=== PATIENT | female | born 1985 | race Caucasian/White ===

== ENCOUNTER 2017-09-26 08:20 | Day surgery (SDC) | payer BC ==
[~2017-09-26 08:20] MED LIST: Lactated Ringers 1,000 ML IV SCH; Lidocaine 2% 5 ML SDV ONE; Midazolam 1 MG/ML 2 ML SDV ONE; Ondansetron 4 MG/2 ML SDV ONE; Propofol 200 MG/20 ML SDV ONE; fentaNYL 250 MCG/5 ML SDV ONE
--- NOTE | 2017-09-26 08:49 | PCM.PREANE ---
Preanesthetic Assessment - Anesthesia/Transfusion/Family Hx Anesthesia History: Prior Anesthesia Without Reaction Family History of Anesthesia Reaction: No Transfusion History: No Prior Transfusion(s) Intubation History: Unknown - Review of Systems General: No Symptoms Pulmonary: No Symptoms Cardiovascular: No Symptoms Gastrointestinal: No Symptoms Neurological: No Symptoms Other: Reports: None - Physical Assessment Height: 1.65 m Weight: 67.132 kg ASA Class: 2 Mental Status: Alert & Oriented x3 Airway Class: Mallampati = 2 Dentition: Reports: Normal Dentition Thyro-Mental Finger Breadths: 3 Mouth Opening Finger Breadths: 3 ROM/Head Extension: Full Lungs: Clear to Auscultation, Normal Respiratory Effort Cardiovascular: Regular Rate, Regular Rhythm - Allergies Allergies/Adverse Reactions: Allergies Allergy/AdvReac Type Severity Reaction Status Date / Time No Known Allergies Allergy Verified 09/21/17 11:59 - Blood Blood Available: No - Anesthesia Plan Pre-Op Medication Ordered: None - Acknowledgements Anesthesia Type Planned: General Anesthesia Pt an Appropriate Candidate for the Planned Anesthesia: Yes Alternatives and Risks of Anesthesia Discussed w Pt/Guardian: Yes Pt/Guardian Understands and Agrees with Anesthesia Plan: Yes PreAnesthesia Questionnaire HEENT History: Reports: Other (See Below) Other HEENT History: wears glasses Respiratory History: Reports: Other (See Below) Other Respiratory History: asthma as a child Genitourinary History: Reports: None COW RIDER History: Reports: , Spontaneous , Other (See Below) ( retained POC post spontaneous ) Musculoskeletal History: Reports: Fracture Other Musculoskeletal History: hx fx left wrist and arm Psychiatric History: Reports: Anxiety, Depression Endocrine/Metabolic History: Reports: Diabetes, Gestational - Past Surgical History Head Surgeries/Procedures: Reports: None HEENT Surgical History: Reports: Oral Surgery Other HEENT Surgeries/Procedures: wisdom teeth extraction - SUBSTANCE USE Smoking Status *Q: Current Every Day Smoker (< 1/2 ppd) Tobacco Use Within Last Twelve Months: Cigarettes Recreational Drug Use History: No - HOME MEDS Home Medications: Home Meds Acetaminophen [Tylenol] 1 - 2 tab PO ASDIRECTED PRN 09/21/17 [History] Ibuprofen 1 - 2 tab PO ASDIRECTED PRN 09/21/17 [History] PARoxetine [Paxil] 20 mg PO DAILY 09/21/17 [History] - CURRENT (IN HOUSE) MEDS Current Meds: Current Medications Lactated Ringer's (Ringers, Lactated) 1,000 mls @ 100 mls/hr IV ASDIRECTED MARIEL Discontinued Medications Fentanyl (Sublimaze) Confirm Administered Dose 250 mcg .ROUTE .STK-MED ONE Stop: 09/26/17 07:04 Lidocaine (Xylocaine-Mpf 2%) Confirm Administered Dose 5 ml .ROUTE .STK-MED ONE Stop: 09/26/17 07:04 Midazolam HCl (Versed 1 Mg/Ml) Confirm Administered Dose 2 mg .ROUTE .STK-MED ONE Stop: 09/26/17 07:04 Ondansetron HCl (Zofran) Confirm Administered Dose 4 mg .ROUTE .STK-MED ONE Stop: 09/26/17 07:04 Propofol (Diprivan 20 Ml) Confirm Administered Dose 200 mg .ROUTE .STK-MED ONE Stop: 09/26/17 07:04
[2017-09-26] MEDS ORDERED: Azithromycin 1,000 MG in Sodium Chloride 0.9% 500 ML IV ONE (08:56)
[2017-09-26] MEDS ORDERED: Dexamethasone 4 MG/ML 5 ML MDV ONE (09:49)
[2017-09-26] MEDS ORDERED: fentaNYL 100 MCG/2 ML SDV IVPUSH PRN (09:56)
[2017-09-26] MEDS ORDERED: Ketorolac 30 MG/ML SDV ONE (09:58)
--- NOTE | 2017-09-26 10:31 | PCM.OPNOTE ---
- General Post-Op/Procedure Note Date of Surgery/Procedure: 09/26/17 Operative Procedure(s): Suction currettage Findings: 7 weeks anteverted uterus , cervix accomodated 7mm curved currette. Minimal necrotic POC evacuated . Uterine cavity with gritty sensation noted in all quadrants after sharp currettage with size 3 curette Pre Op Diagnosis: Retained product of conception secondary to Medical TOP Post-Op Diagnosis: same Anesthesia Technique: General LMA Primary Surgeon: Felix Curran Anesthesia Provider: Tello Garner Radic Pathology: Product of conception Output, Urine Amount: 1,000 EBL in mLs: 10 Complications: None Condition: Good Free Text/Narrative:: 1gram Azithromycin given before procedure
--- NOTE | 2017-09-26 10:39 | PCM.POSTAN ---
POST ANESTHESIA ASSESSMENT - MENTAL STATUS Mental Status: Alert, Oriented - RESPIRATORY Respiratory Status: Respiratory Rate WNL, Airway Patent, O2 Saturation Stable - CARDIOVASCULAR CV Status: Pulse Rate WNL, Blood Pressure Stable - GASTROINTESTINAL GI Status: No Symptoms - PAIN Pain Score: 0 - POST OP HYDRATION Hydration Status: Adequate & Stable
--- NOTE | 2017-09-26 11:52 | PCM48HPAN ---
Post Anesthesia Note - EVALUATION WITHIN 48HRS OF ANESTHETIC Vital Signs in Normal Range: Yes Patient Participated in Evaluation: Yes Respiratory Function Stable: Yes Airway Patent: Yes Cardiovascular Function Stable: Yes Hydration Status Stable: Yes Pain Control Satisfactory: Yes Nausea and Vomiting Control Satisfactory: Yes Mental Status Recovered: Yes Resp Rate: 13 - COMMENTS/OBSERVATIONS Free Text/Narrative:: no anesthesia problems
[2017-09-26 14:01] VITALS: BP 81/61
--- NOTE | 2017-09-26 15:50 | OR ---
SURGEON: NEIL REYES DATE OF PROCEDURE: 09/26/2017 OPERATIVE PROCEDURE: Suction curettage. PREOPERATIVE DIAGNOSIS: Retained products of conception secondary to medical termination of . POSTOPERATIVE DIAGNOSIS: Retained products of conception secondary to medical termination of . ANESTHESIA: General LMA. PATHOLOGY: Products of conception. ESTIMATED BLOOD LOSS: 10. IV FLUIDS: 1000. URINE OUTPUT: Minimal. FINDINGS: EUA showed a 7 -week sized anteverted uterus.Without dilatation the cervix accommodated a 7 mm curved curette.Minimal necrotic POC evacuated with the suction curettage. The uterine cavity was noted to have a gritty sensation in all quadrants after the sharp curettage. A size 3 curette was used. BRIEF HISTORY ABOUT THE PATIENT: 31 yo P2 who had a medical termination at 7 weeks on July 31; the was 7 weeks. She said she has been having abnormal uterine bleeding on and off since then.An ultrasound was done which showed thickened endometrium with increased vascular flow, consistent to retained POC. Beta hCG 5.3. The patient was consented for suction and curettage. She understands the risk , benefit and alternative and accepts and signs the consent. DESCRIPTION OF PROCEDURE: The patient was taken to the operating room, where a general anesthesia was performed without difficulty. The patient was placed in the dorsal lithotomy position, she was prepared and draped in the normal sterile fashion. A weighted speculum was placed in the posterior vaginal fornix. The anterior lip of the cervix was grasped with the Allis clamp. The cervical os was opened to accommodate 7 mm curved curette. The suction was connected to the suction currette and turned on.Minimal necrotic POC was obtained. After , a size 3 curette was placed into the uterine fundus and scraped gently until gritty sensation was noted. Again, the suction curettage was introduced and suction was done. The hemostasis was noted after the procedure . The Allis and suction was removed. Hemostasis was noted after the procedure The patient tolerated the procedure well. All instrument and pad counts were correct x2. DOROTHEA / LINDA /[id number] MTDGiovanni
== END 2017-09-26 12:15 | disposition home or self-care (01) ==
LOC: MW.SDS 08:20
PROVIDERS: ATTEND Obstetrics & Gynecology
DX: O73.1 Retained portions of placenta and membranes, without hemorrhage (principal); J45.909 Unspecified asthma, uncomplicated; O24.419 Gestational diabetes mellitus in pregnancy, unspecified control; Z79.899 Other long term (current) drug therapy; F17.210 Nicotine dependence, cigarettes, uncomplicated
CPT/HCPCS: 36415; 58120; 84702; 85025; 86850; 86900; 86901; J0456; J1100; J1885; J2250; J2405; J3010; J7040; J7120; 00940; 88305; J2704